=== PATIENT | female | born 1935 | race Caucasian/White ===

== ENCOUNTER 2017-06-12 07:59 | Day surgery (SDC) | payer OTHER ==
[2017-06-12] MEDS ORDERED: ACETAZOLAMIDE 250 MG PO ONE (08:08)
[2017-06-12] MEDS ORDERED: MIDAZOLAM 2 MG/2 ML SOL ONE (08:09)
[2017-06-12] MEDS: CYCLOPENTOLATE 1% SOL ONE ×2 (08:31→08:43)
[2017-06-12] MEDS: PHENYLEPHRINE HCL 10% OPHTHAL SOL ONE ×2 (08:31→08:44)
[2017-06-12] MEDS: KETOROLAC 0.5% OPTH 60 DROP SOL ONE ×2 (08:31→08:44)
[2017-06-12] MEDS: PROPARACAINE HCL 0.5% OPHTHALMIC SOL ONE ×3 (08:31→09:19)
[2017-06-12] MEDS ORDERED: TRIAMCINOLONE ACETONIDE 10 MG/ML VIAL ONE (09:03)
[2017-06-12] MEDS ORDERED: LIDOCAINE HCL 1% MPF SOL ONE (09:03)
[2017-06-12] MEDS ORDERED: POVIDONE IODINE 5% SOL ONE (09:03)
[2017-06-12] MEDS ORDERED: BSS 500 ML 500 ML IR ONE (09:03)
[2017-06-12 09:55] VITALS: PULSE 56; RESP 20; TEMP 97.1
[2017-06-12 10:05] VITALS: BP 171/72; O2SAT 96
== END 2017-06-12 10:15 | disposition home or self-care (01) | DRG 125 ==
LOC: SURG 07:59
PROVIDERS: ATTEND Ophthalmology
DX: H25.9 Unspecified age-related cataract (principal)
CPT/HCPCS: J2250; A9270-GY; J2001

== ENCOUNTER 2017-07-22 08:23 | Day surgery (SDC) | payer OTHER ==
[2017-07-22] MEDS ORDERED: ACETAZOLAMIDE 250 MG PO ONE (08:35)
[2017-07-22] MEDS: PHENYLEPHRINE HCL 10% OPHTHAL SOL ONE ×2 (08:50→09:06)
[2017-07-22] MEDS: PROPARACAINE HCL 0.5% OPHTHALMIC SOL ONE ×3 (08:50→09:57)
[2017-07-22] MEDS: CYCLOPENTOLATE 1% SOL ONE ×2 (08:51→09:07)
[2017-07-22] MEDS: KETOROLAC 0.5% OPTH 60 DROP SOL ONE ×2 (08:51→09:07)
[2017-07-22 09:04] VITALS: RESP 16
[2017-07-22] MEDS ORDERED: MIDAZOLAM 2 MG/2 ML SOL ONE (09:36)
[2017-07-22] MEDS ORDERED: FENTANYL 100MCG/2ML SOL ONE (09:36)
[2017-07-22] MEDS ORDERED: TRIAMCINOLONE ACETONIDE 10 MG/ML VIAL ONE (09:51)
[2017-07-22] MEDS ORDERED: BSS 500 ML 500 ML IR ONE (09:52)
[2017-07-22] MEDS ORDERED: CEFUROXIME SODIUM/0.9% NACL/PF 10 MG/ML VIAL IO ONE (09:52)
[2017-07-22] MEDS: POVIDONE IODINE 5% SOL ONE ×2 (10:00→10:15)
[2017-07-22] MEDS: LIDOCAINE HCL 1% MPF SOL ONE ×2 (10:04→10:16)
[2017-07-22 10:36] VITALS: BP 176/86; PULSE 60; TEMP 97.2; O2SAT 97
== END 2017-07-22 10:57 | DRG 125 ==
LOC: SURG 08:23
PROVIDERS: ATTEND Ophthalmology
DX: H25.9 Unspecified age-related cataract (principal); E11.9 Type 2 diabetes mellitus without complications
CPT/HCPCS: J2250; J3010; A9270-GY; J0697; J2001; J3300